=== PATIENT | female | born 1990 | race Caucasian/White ===

== ENCOUNTER 2017-10-03 23:20 | Emergency (ER) | payer OTHER ==
[~2017-10-03] VITALS: Ht 167.6 cm; Wt 83.9 kg
[~2017-10-03 23:20] MED LIST: NAPROSYN500 M1 PO; ROBAXIN500 M1 PO
[2017-10-03 23:24] VITALS: BP 145/92
== END 2017-10-04 00:04 | disposition admitted as inpatient to this hospital (09) ==
LOC: ERH 23:20
DX: L50.9 Urticaria, unspecified (principal)